=== PATIENT | female | born 1995 | race Caucasian/White ===

== ENCOUNTER 2019-10-07 10:24 | Emergency (ER) | payer OTHER ==
[~2019-10-07] VITALS: Ht 157.5 cm; Wt 47.6 kg
[2019-10-07 10:25] VITALS: BP 102/60
--- NOTE | 2019-10-07 11:05 | NUR ---
PT COMPLAINING OF R EAR PAIN AND DECREASED HEARING. PT STATES "I FELL OVER LAST NIGHT AND A STICK WENT INTO MY R EAR AND NOW I CAN'T HEAR, MY FRIEND PUT EAR WAX REMOVER IN IT AFTER AND ITS WORSE NOW". FLUSHED EAR WITH 20 CC OF NS FLUSH PER PA. PT TOLERATED PROCEDURE WELL. INSTRUCTED PT TO TILT HEAD TO THE RIGHT IN ORDER TO DRAIN. WILL CONTINUE TO MONITOR PT.
== END 2019-10-07 11:33 | disposition home or self-care (01) ==
LOC: ED 11:05
DX: H61.21 Impacted cerumen, right ear (principal)
CPT/HCPCS: 99283